=== PATIENT | female | born 1985 | race Caucasian/White ===

== ENCOUNTER → 2022-09-27 09:54 | Outpatient (BNVA) | payer OTHER, SELFPAY | PROVIDERS: Family Provider Family Medicine; PCP Nurse Practitioner Family; Visit Provider Nurse Practitioner Family | DX: F41.9 Anxiety disorder, unspecified (principal); F32.A Depression, unspecified; Z13.6 Encounter for screening for cardiovascular disorders; E66.9 Obesity, unspecified | CPT/HCPCS: 80053; 80061; 82306; 82607; 83036; 84443; 85025 ==

== ENCOUNTER → 2022-12-27 11:52 | Outpatient (BNVA) | payer OTHER, SELFPAY | PROVIDERS: Family Provider Family Medicine; PCP Nurse Practitioner Family; Visit Provider Nurse Practitioner Family | DX: E55.9 Vitamin D deficiency, unspecified (principal) | CPT/HCPCS: 82306 ==

== ENCOUNTER → 2023-11-06 09:58 | Outpatient (BNVA) | payer BC, SELFPAY | PROVIDERS: Family Provider Family Medicine; PCP Nurse Practitioner Family; Visit Provider Registered Nurse Neonatal Intensive Care | DX: R50.9 Fever, unspecified (principal); J02.9 Acute pharyngitis, unspecified | CPT/HCPCS: 87400; 87880 ==

== ENCOUNTER → 2023-11-27 08:54 | Outpatient (BNVA) | payer BC, SELFPAY | PROVIDERS: Family Provider Family Medicine; PCP Nurse Practitioner Family; Visit Provider Nurse Practitioner | DX: F41.9 Anxiety disorder, unspecified (principal); I10 Essential (primary) hypertension; F32.A Depression, unspecified; E55.9 Vitamin D deficiency, unspecified | CPT/HCPCS: 80053; 80061; 82306; 84443 ==

== ENCOUNTER 2023-12-12 09:10 | Emergency (ER) | payer BC, SELFPAY ==
[2023-12-12 09:20] VITALS: BP 151/93; PULSE 116; RESP 18; TEMP 36.7; O2SAT 100; BMI 48.2
[2023-12-12 10:20] LABS: Basophils % 0.3 %; Eosinophils # 0.1 10^3/uL (0.0-0.8); Eosinophils % 2.1 %; Hematocrit 41.8 % (36-47); Lymphocytes # 1.4 10^3/uL (0.8-4.8); Lymphocytes % 21.3 %; Mean Corpuscular HGB Conc 31.8 g/dL (30-55); Mean Corpuscular Hemoglobin 25.3 pg (27-33); Mean Corpuscular Volume 79.6 fl (85-98); Mean Platelet Volume 9.3 fL (7.4-10.4); Monocytes # 0.5 10^3/uL (0.2-0.9); Monocytes % 6.7 %; Neutrophils # 4.63 10^3/uL (1.8-7.7); Neutrophils % 69.3 %; Nucleated Red Blood Cells % 0 %; Platelet Count 395 10^3/cmm (157-399); Red Blood Count 5.25 10^6/uL (3.85-5.65); Red Cell Distribution Width 13.9 % (12.1-15.1); White Blood Count 6.68 10^3/uL (3.29-11.43)
[2023-12-12 10:22] VITALS: BP 109/91; PULSE 88; O2SAT 100
[2023-12-12 10:36] LABS: Urine Appearance Cloudy (CLEAR); Urine Color Dark Yellow (Yellow)
[2023-12-12 10:39] LABS: Add Urine Microscopic? YES; Bilirubin Urine 1+ (Negative); Blood Urine 2+ (Negative); Glucose Urine UA Norm (Normal); Ketones Urine 2+ (Negative); Leukocyte Esterase Urine 2+ (Negative); Nitrate Urine Negative (Negative); Protein Urine Trace (Negative); Specific Gravity, Urine 1.025 (1.005-1.030); Urobilinogen Urine Norm (Negative); pH Urine 5 (5-7)
[2023-12-12 10:42] LABS: Add Urine Culture? Yes; Bacteria Urine 1+ /hpf; Hyaline Casts Urine 0-4 /lpf; Mucus Urine 1+ /hpf; RBC Urine 0-4 /hpf (0-2); WBC Urine 15-25 /hpf (0-5)
[2023-12-12 10:42] LABS: Alanine Aminotransferase 12 U/L (0-33); Alkaline Phosphatase 107 U/L (35-105); Aspartate Amino Transferase 18 U/L (0-32); Blood Urea Nitrogen 9 mg/dL (6-20); Calcium 8.3 mg/dL (8.5-10.5); Carbon Dioxide 25 mmol/L (22-29); Chloride 101 mmol/L (98-107); Creatinine Clr Calc Pharmacy 172.5283; Globulin 3.5 g/dL (1.3-4.6); Glomerular Filtration Rate 111.3 mL/min (90-130); Glucose 100 mg/dL (65-115); Osmolality Calculated 285 mOsm/kg (285-295); Sodium 138 mmol/L (136-145); Total Bilirubin 0.4 mg/dL (0.15-1.2); Total Protein 7.5 g/dL (6.6-8.7)
[2023-12-12 10:54] LABS: Anion Gap 15.8 (5-19); Potassium 3.8 mmol/L (3.5-5.1)
--- NOTE | 2023-12-12 10:54 | W.ED.NAVMDI ---
HPI - Nausea/Vomiting/Diarrhea General: Chief complaint: Nausea/Vomiting/Diarrhea Stated complaint: N/V, chills Time Seen by Provider: 12/12/23 10:50 History of Present Illness: 38-year-old female presents emergency department with complaints of feeling generally rundown with excessive periods with nausea and vomiting for the previous 2 days. She states she recently took the Victoza shot for weight loss and then started having several episodes of nausea and vomiting since that time. She states that she does feel very tired and run down since that time. She denies fevers or night sweats. She denies epigastric or abdominal pain. She states she is having normal bowel movements. She states that she feels like she is unable to keep anything down. She states anytime she attempts to eat or drink anything she feels like she is going to vomit. Associated nausea: Yes Associated symtoms: Reports nausea Review of Systems General: Reports: 10 or more systems reviewed and unremarkable except in HPI and below GI: Reports: nausea and vomiting : Reports: urinary frequency PFSH ED PFSH: Medical History Anxiety and depression Obesity Surgical History Hx of section 3 Hx of appendectomy H/O tubal ligation Family History Family/Other Diabetes Heart disease Cancer colon, breast Hypertension Psychiatric illness bipolar disorder, depression Social History Smoking and tobacco/nicotine status: former use of tobacco/nicotine Quit status (tobacco/nicotine): has quit using Year quit tobacco: 2014 Former quit date comment: smoked on and off for 12 years prior to quitting in 2014 Second hand smoke exposure: No Alcohol intake: current Alcohol intake frequency: holidays/special occasions only Alcohol type: other Substance/Drug Use: never Adopted: No Household members: spouse and children Marital status: Number of children: 3 service: No Current occupational status: employed Current occupation: [employer] Pets and animals: Yes Pets & animals: dog(s) Current gender identity: Female Mary/Anabaptist: Taoist Special mary needs: No Physical Exam Narrative: EXAM NARRATIVE: Constitutional: the patient appears well nourished and of normal development. Vital signs as documented. No acute distress at present. Alert and oriented-to person, place, time and situation. Head, eyes, ears, nose, mouth, throat: Normocephalic, atraumatic. Pupils-equal, round, reactive to light. No scleral icterus. Normal-appearing external ears. Normal appearing nasal turbinates, no drainage. No obvious oral lesions, posterior oropharynx without erythema or exudates. Neck: Supple, trachea is midline, no lymphadenopathy, no jugular venous distension, thyromegaly, or carotid bruits. Carotid upstrokes are brisk bilaterally. Lungs: clear to auscultation to all lung grey. Symmetrical rise and fall of chest, no obvious signs of increased work of breathing at present. Cardiac: Regular rate and rhythm, positive S1, S2. No murmurs, rubs or gallops that I can appreciate Abdomen: Soft, non-tender to palpation, normal active bowel sounds to all quadrants. No palpable masses, no organomegaly and abdominal bruits. Extremities: 2+ pulses in the upper extremities that are equal bilaterally, 2+ pulses in the lower extremities that are equal bilaterally. Non-edematous. Moves all extremities well, sensation to all extremities are noted. Skin: Warm, dry, intact. Course Vital Signs: Vital signs: Vital Signs Temperature 98.0 F 12/12/23 09:20 Pulse Rate 82 12/12/23 11:22 Respiratory Rate 18 12/12/23 09:20 Blood Pressure 147/85 12/12/23 11:22 Pulse Oximetry 100 12/12/23 11:22 Oxygen Delivery Me thod Room Air 12/12/23 11:22 MDM - Nausea/Vomiting/Diarrhea Medical Decision Making Physical exam completed and documented I did obtain a CBC and CMP which appear to be unremarkable. I suspect most likely her nausea vomiting is related to her big toe so I did advise her to contact her primary care physician and will provide her Zofran for antiemetic. Advised her to take no additional shots of the Victoza and discuss her weight loss treatment plan with her primary care weight loss physician Medical Records I reviewed the patient's medical records. Lab Data I reviewed the patient's lab results. 12/12/23 10:14 12/12/23 10:14 Laboratory Results WBC 6.68 10^3/uL (3.29-11.43) 12/12/23 10:14 RBC 5.25 10^6/uL (3.85-5.65) 12/12/23 10:14 Hgb 13.30 g/dL (11.27-16.99) 12/12/23 10:14 Hct 41.8 % (36-47) 12/12/23 10:14 MCV 79.6 fl (85-98) L 12/12/23 10:14 MCH 25.3 pg (27-33) L 12/12/23 10:14 MCHC 31.8 g/dL (30-55) 12/12/23 10:14 RDW 13.9 % (12.1-15.1) 12/12/23 10:14 Plt Count 395 10^3/cmm (157-399) 12/12/23 10:14 MPV 9.3 fL (7.4-10.4) 12/12/23 10:14 Neut % (Auto) 69.3 % 12/12/23 10:14 Lymph % (Auto) 21.3 % 12/12/23 10:14 [place] % (Auto) 6.7 % 12/12/23 10:14 Eos % (Auto) 2.1 % 12/12/23 10:14 Baso % (Auto) 0.3 % 12/12/23 10:14 Neut # (Auto) 4.63 10^3/uL (1.8-7.7) 12/12/23 10:14 Lymph # (Auto) 1.4 10^3/uL (0.8-4.8) 12/12/23 10:14 [place] # (Auto) 0.5 10^3/uL (0.2-0.9) 12/12/23 10:14 Eos # (Auto) 0.1 10^3/uL (0.0-0.8) 12/12/23 10:14 Baso # (Auto) 0.0 10^3/uL (0.0-0.1) 12/12/23 10:14 Nucleated RBC % (auto) 0 % 12/12/23 10:14 Nucleated RBCs # 0.0 /100WBC 12/12/23 10:14 Sodium 138 mmol/L (136-145) 12/12/23 10:14 Potassium 3.8 mmol/L (3.5-5.1) 12/12/23 10:14 Chloride 101 mmol/L (98-107) 12/12/23 10:14 Carbon Dioxide 25 mmol/L (22-29) 12/12/23 10:14 Anion Gap 15.8 (5-19) 12/12/23 10:14 BUN 9 mg/dL (6-20) 12/12/23 10:14 Creatinine 0.6 mg/dL (0.5-0.9) 12/12/23 10:14 GFR Calculation 111.3 mL/min (90-130) 12/12/23 10:14 Glucose 100 mg/dL (65-115) 12/12/23 10:14 Calculated Osmolality 285 mOsm/kg (285-295) 12/12/23 10:14 Calcium 8.3 mg/dL (8.5-10.5) L 12/12/23 10:14 Total Bilirubin 0.4 mg/dL (0.15-1.2) 12/12/23 10:14 AST 18 U/L (0-32) 12/12/23 10:14 ALT 12 U/L (0-33) 12/12/23 10:14 Alkaline Phosphatase 107 U/L (35-105) H 12/12/23 10:14 Total Protein 7.5 g/dL (6.6-8.7) 12/12/23 10:14 Albumin 4.0 g/dL (3.5-5.2) 12/12/23 10:14 Globulin 3.5 g/dL (1.3-4.6) 12/12/23 10:14 Urine Color Dark yellow (Yellow) 12/12/23 10:20 Urine Appearance Cloudy (CLEAR) A 12/12/23 10:20 Urine pH 5 (5-7) 12/12/23 10:20 Ur Specific [place] 1.025 (1.005-1.030) 12/12/23 10:20 Urine Protein Trace (Negative) 12/12/23 10:20 Urine Glucose (UA) Norm (Normal) 12/12/23 10:20 Urine Ketones 2+ (Negative) H 12/12/23 10:20 Urine Blood 2+ (Negative) H 12/12/23 10:20 Urine Nitrate Negative (Negative) 12/12/23 10:20 Urine Bilirubin 1+ (Negative) H 12/12/23 10:20 Urine Urobilinogen Norm mg/dL (Negative) 12/12/23 10:20 Ur Leukocyte Esterase 2+ (Negative) H 12/12/23 10:20 Urine RBC 0-4 /hpf (0-2) H 12/12/23 10:20 Urine WBC 15-25 /hpf (0-5) H 12/12/23 10:20 Ur Squamous Epith Cells 5-10 /hpf (0-5) H 12/12/23 10:20 Calcium Oxalate Crystal 5-10 /hpf H 12/12/23 10:20 Amorphous Sediment Not Reportable 12/12/23 10:20 Urine Bacteria 1+ /hpf (NONE) H 12/12/23 10:20 Hyaline Casts 0-4 /lpf H 12/12/23 10:20 Urine Mucus 1+ /hpf 12/12/23 10:20 No radiology studies performed this visit Discharge Plan Discharge Patient Disposition: Home Clinical Impression: Urinary tract infection Qualifiers: Urinary tract infection type: acute cystitis Hematuria presence: with hematuria Qualified Code(s): N30.01 - Acute cystitis with hematuria Condition: Stable Prescriptions: New ondansetron HCl 4 mg tablet 4 mg PO Q6H PRN (Reason: nausea and vomiting) Qty: 14 0RF Macrobid 100 mg capsule 100 mg PO Q12H 7 Days Qty: 14 0RF Rx Instructions: must administer with a meal/food No Action hydroxyzine pamoate 25 mg capsule 25 mg PO BID PRN (Reason: anxiety) Qty: 10 0RF magnesium oxide 400 mg magnesium capsule 400 mg PO DAILY zinc sulfate 50 mg zinc (220 mg) capsule 50 mg PO DAILY mecobalamin (vitamin B12) 1,000 mcg tablet,disintegrating 1,000 mcg sublingual DAILY Rx Instructions: place tablet under tongue and allow to dissolve for at least30 secs before swallowing cholecalciferol (vitamin D3) 25 mcg (1,000 unit) capsule 25 mcg PO DAILY propranolol 20 mg tablet 20 mg PO BID Qty: 60 2RF buspirone 30 mg tablet 30 mg PO BID 30 Days Qty: 60 2RF duloxetine 60 mg capsule,delayed release(DR/EC) 60 mg PO DAILY Qty: 30 2RF Rx Instructions: take 1 capsule daily with 30 mg to = 90 mg daily duloxetine 30 mg capsule,delayed release(DR/EC) 30 mg PO DAILY Qty: 30 2RF Rx Instructions: take 1 capsule with 60 mg to = 90 mg daily naltrexone 50 mg tablet 50 mg PO DAILY Qty: 30 2RF Victoza 3-Gary 0.6 mg/0.1 mL (18 mg/3 mL) pen injector See Rx Instructions SUBCUT .COMPLEX Qty: 9 0RF Rx Instructions: inject 0.6mg subcutaneously once daily x 7 days; then 1.2mg daily for week, not to exceed 1.8mg/day SUBCUT (DME) pen needle, diabetic 33 gauge x 5/32 needle See Rx Instructions .ROUTE .MEDSUPPLY Qty: 100 5RF Rx Instructions: 1 time day fluticasone propionate [Flonase Allergy Relief] 50 mcg/actuation spray,suspension 1 spray intranasal Q12H Qty: 16 2RF Rx Instructions: administer into each nostril Discharge Orders: Discharge ED (Routine); Ordered 12/12/23 Ordered By: Luis Arias Referrals: Adeola Jacobo, [employer]-C [Primary Care Provider] - Discharge Diet: Advance as tolerated Discharge Activity: Resume usual activity Patient Instructions: Opioid Safety, Pain Management Activity Restrictions/Additional Instructions: Activity Restrictions/Additional Instructions: Thank you for choosing [facility] for your healthcare needs today. Please realize that you were seen in the Emergency Department and that we are providing you with an emergency medical screening exam and this may not be a complete and all inclusive of all the testing and or medical work-up that you may need to determine your ailment or severity of your illness. It is very important that you follow-up as instructed with your Primary care provider or Specialist for additional evaluation and to discuss your medical treatment plan. Coding Level of Care Code ED Hotel Or Motel Manager for Zehra Conner
[2023-12-12] MEDS: cefTRIAXone 1,000 MG in sodium chloride 0.9% (plus) 50 ML 100 MG IV (11:20)
[2023-12-12 11:22] VITALS: BP 147/85; PULSE 82; O2SAT 100
[2023-12-12 11:59] VITALS: BP 130/90; PULSE 75; O2SAT 100
== END 2023-12-12 12:00 | disposition home or self-care (01) ==
PROVIDERS: Family Medicine; Emergency Provider Internal Medicine; PCP Nurse Practitioner
DX: N30.01 Acute cystitis with hematuria (principal); Z87.891 Personal history of nicotine dependence
CPT/HCPCS: 80053; 81001; 85025; 87086; 87186; 96365; 99284; J0696

== ENCOUNTER 2023-12-27 22:07 | Emergency (ER) | payer BC, SELFPAY ==
[2023-12-27 22:18] VITALS: BP 152/101; PULSE 66; RESP 16; TEMP 36.5; O2SAT 100; BMI 46.5
--- NOTE | 2023-12-27 23:20 | CTR_ITS ---
PROCEDURE INFORMATION: Exam: CT Abdomen And Pelvis Without Contrast Exam date and time: 12/28/2023 12:22 AM Age: 38 years old Clinical indication: Nausea and vomiting; Abdominal pain; Flank; Left; Prior surgery; Surgery date: 6+ months; Surgery type: Tubal, appy; Additional info: Flank pain, HX of kidney stones TECHNIQUE: Imaging protocol: Computed tomography of the abdomen and pelvis without contrast. Radiation optimization: All CT scans at this facility use at least one of these dose optimization techniques: automated exposure control; mA and/or kV adjustment per patient size (includes targeted exams where dose is matched to clinical indication); or iterative reconstruction. COMPARISON: No relevant prior studies available. RADIATION DOSE METRICS: Total DLP (mGy-cm): 1183 FINDINGS: Lungs: Lung bases are clear. Heart: No cardiomegaly. No pericardial effusion. Diaphragm: Small sliding hiatal hernia. Liver: Normal liver. Gallbladder and bile ducts: Normal gallbladder. No calcified stones. No ductal dilation. Pancreas: Normal pancreas. No ductal dilation. Spleen: Normal spleen. No splenomegaly. Adrenal glands: Normal adrenal glands. Kidneys and ureters: A 5 mm calculus in the proximal left ureter, with mild left hydronephrosis and trace periureteral stranding. Kidneys are otherwise unremarkable. No other calculi are identified. Stomach and bowel: No bowel wall thickening. No evidence of bowel obstruction. Appendix: Appendix not visualized, consistent with history of prior appendectomy. Intraperitoneal space: No free fluid or free air. Vasculature: No abdominal aortic aneurysm. Lymph nodes: No adenopathy. Urinary bladder: Urinary bladder is decompressed, limiting evaluation. No obvious bladder abnormality. Reproductive: Uterus and adnexal structures are grossly unremarkable. Bones/joints: No acute osseous abnormality or evidence of osseous metastatic disease. Severe disc space narrowing at L5-S1. Soft tissues: Mild diastasis rectus with small fat containing umbilical hernia. CT/CT kidney stone [id number] IMPRESSION: 1. A 5 mm calculus in the proximal left ureter, with mild left hydronephrosis and trace periureteral stranding. 2. Small sliding hiatal hernia. 3. Appendix not visualized, consistent with history of prior appendectomy. 4. Mild diastasis rectus with small fat containing umbilical hernia.
--- NOTE | 2023-12-28 00:30 | ED_ITS ---
HPI - Back Pain/Injury 2 General: Chief Complaint: Back Pain/Injury Stated Complaint: Martha Stone Time Seen by Provider: 12/28/23 00:29 History of Present Illness: Patient presents with left-sided back pain. She was here not too long ago for urinary tract infection. Pancreas think she is passing kidney stone. Patient is had stones in the past. Patient is having lots of nausea and vomiting. Review of Systems 2 General: Reports: 10 or more systems reviewed and unremarkable except in HPI and below PFSH ED 2 PFSH: Medical History Anxiety and depression Obesity Surgical History Hx of section 3 Hx of appendectomy H/O tubal ligation Family History Family/Other Diabetes Heart disease Cancer colon, breast Hypertension Psychiatric illness bipolar disorder, depression Social History Smoking and tobacco/nicotine status: former use of tobacco/nicotine Quit status (tobacco/nicotine): has quit using Year quit tobacco: 2014 Former quit date comment: smoked on and off for 12 years prior to quitting in 2014 Second hand smoke exposure: No Alcohol intake: current Alcohol intake frequency: holidays/special occasions only Alcohol type: other Substance/Drug Use: never Adopted: No Household members: spouse and children Marital status: Number of children: 3 service: No Current occupational status: employed Current occupation: [employer] Pets and animals: Yes Pets & animals: dog(s) Current gender identity: Female Mary/Synagogue: Mosque Special mary needs: No Physical Exam 2 Const: COMMON NORMALS: no acute distress, average body habitus, patient oriented x3, no limitations, healthy appearing, alert and well nourished HENMT: COMMON NORMALS: normocephalic, atraumatic, hearing grossly normal bilaterally, external ears normal, Normal external nose present, moist oral mucous membranes and oropharynx normal HEAD & SCALP: normocephalic and atraumatic NOSE: Normal external nose present EXTERNAL EAR: Yes external ears normal Neck/C-Spine: COMMON NORMALS: no JVD Chest: COMMONS NORMALS: normal inspection of the chest and normal palpation of entire chest wall Resp: COMMON NORMALS: normal respiratory effort, No retractions, No use of accessory muscles and clear to auscultation bilaterally AUSCULTATION: clear to auscultation bilaterally Cardio: COMMON NORMALS: no JVD, regular rate, regular rhythm, S1 normal heart sound present, S2 normal heart sound present, No gallops present (Cardio), No clicks present (Cardio), No murmurs present (Cardio) and No rub (Cardio) R ATE: regular rate RHYTHM: regular rhythm HEART SOUNDS: S1 normal heart sound present and S2 normal heart sound present GI: COMMON NORMALS: Normal to inspection, nondistended, normoactive bowel sounds present, Soft to palpation, non-tender, No hepatosplenomegaly present and no masses PALPATION: Yes Soft to palpation and Yes No hepatosplenomegaly present Neuro: COMMON NORMALS: patient oriented x3 SENSORIUM/ORIENTATION: Yes alert Course 2 Vital Signs: Vital signs: Vital Signs Temperature 97.7 F 12/27/23 22:18 Pulse Rate 66 12/27/23 22:18 Respiratory Rate 20 H 12/28/23 01:00 Blood Pressure 152/101 12/27/23 22:18 Pulse Oximetry 100 12/27/23 22:18 Oxygen Delivery Me thod Room Air 12/27/23 22:18 MDM - Back Pain/Injury Medical Decision Making Labs were obtained which showed a white count of 17,000, a urinary tract infection still present. Abdomen CT of the pelvis showed 5 mm stone in the proximal left ureter with mild hydro-, patient was given Toradol, Zofran, 1 L normal saline bolus, morphine 4 mg, Norflex 60 mg, patient will be discharged on Levaquin, Toradol tablets, and Flomax. Patient will have an appointment with the urologist made by case management. Differential Diagnosis Unlikely lumbar radiculopathy, sciatica, strain of lumbar region, renal colic, pyelonephritis, thoracic back pain, AAA or discitis Medical Records I reviewed the patient's medical records. Labs I reviewed the patient's lab results. 12/28/23 00:41 12/28/23 00:41 Radiology Impressions Abdomen/Pelvis CT 12/27/23 23:20 IMPRESSION: 1. A 5 mm calculus in the proximal left ureter, with mild left hydronephrosis and trace periureteral stranding. 2. Small sliding hiatal hernia. 3. Appendix not visualized, consistent with history of prior appendectomy. 4. Mild diastasis rectus with small fat containing umbilical hernia. Laboratory Results WBC 17.57 10^3/uL (3.29-11.43) H 12/28/23 00:41 RBC 4.69 10^6/uL (3.85-5.65) 12/28/23 00:41 Hgb 11.90 g/dL (11.27-16.99) 12/28/23 00:41 Hct 37.1 % (36-47) 12/28/23 00:41 MCV 79.1 fl (85-98) L 12/28/23 00:41 MCH 25.4 pg (27-33) L 12/28/23 00:41 MCHC 32.1 g/dL (30-55) 12/28/23 00:41 RDW 13.8 % (12.1-15.1) 12/28/23 00:41 Plt Count 400 10^3/cmm (157-399) H 12/28/23 00:41 MPV 9.1 fL (7.4-10.4) 12/28/23 00:41 Neut % (Auto) 82.0 % 12/28/23 00:41 Lymph % (Auto) 11.7 % 12/28/23 00:41 [place] % (Auto) 4.8 % 12/28/23 00:41 Eos % (Auto) 0.7 % 12/28/23 00:41 Baso % (Auto) 0.3 % 12/28/23 00:41 Neut # (Auto) 14.38 10^3/uL (1.8-7.7) H 12/28/23 00:41 Lymph # (Auto) 2.1 10^3/uL (0.8-4.8) 12/28/23 00:41 [place] # (Auto) 0.9 10^3/uL (0.2-0.9) 12/28/23 00:41 Eos # (Auto) 0.1 10^3/uL (0.0-0.8) 12/28/23 00:41 Baso # (Auto) 0.1 10^3/uL (0.0-0.1) 12/28/23 00:41 Nucleated RBC % (auto) 0 % 12/28/23 00: Nucleated RBCs # 0.0 /100WBC 12/28/23 00:41 Sodium 138 mmol/L (136-145) 12/28/23 00:41 Potassium 4.3 mmol/L (3.5-5.1) 12/28/23 00:41 Chloride 99 mmol/L (98-107) 12/28/23 00:41 Carbon Dioxide 28 mmol/L (22-29) 12/28/23 00:41 Anion Gap 15.3 (5-19) 12/28/23 00:41 BUN 13 mg/dL (6-20) 12/28/23 00:41 Creatinine 0.8 mg/dL (0.5-0.9) 12/28/23 00: GFR Calculation 79.9 mL/min (90-130) L 12/28/23 00:41 Glucose 152 mg/dL (65-115) H 12/28/23 00:41 Calculated Osmolality 289 mOsm/kg (285-295) 12/28/23 00:41 Calcium 8.9 mg/dL (8.5-10.5) 12/28/23 00:41 Total Bilirubin 0.6 mg/dL (0.15-1.2) 12/28/23 00:41 AST 21 U/L (0-32) 12/28/23 00:41 ALT 8 U/L (0-33) 12/28/23 00:41 Alkaline Phosphatase 88 U/L (35-105) 12/28/23 00:41 Total Protein 7.7 g/dL (6.6-8.7) 12/28/23 00:41 Albumin 4.2 g/dL (3.5-5.2) 12/28/23 00:41 Globulin 3.5 g/dL (1.3-4.6) 12/28/23 00:41 Urine Color Yellow (Yellow) 12/28/23 00:17 Urine Appearance Hazy (CLEAR) A 12/28/23 00:17 Urine pH 6 (5-7) 12/28/23 00:17 Ur Specific [place] 1.020 (1.005-1.030) 12/28/23 00:17 Urine Protein 1+ (Negative) H 12/28/23 00:17 Urine Glucose (UA) Norm (Normal) 12/28/23 00:17 Urine Ketones 1+ (Negative) H 12/28/23 00:17 Urine Blood 3+ (Negative) H 12/28/23 00:17 Urine Nitrate Negative (Negative) 12/28/23 00:17 Urine Bilirubin Neg (Negative) 12/28/23 00:17 Urine Urobilinogen Neg mg/dL (Negative) 12/28/23 00:17 Ur Leukocyte Esterase 1+ (Negative) H 12/28/23 00:17 Urine RBC 25-40 /hpf (0-2) H 12/28/23 00:17 Urine WBC 15-25 /hpf (0-5) H 12/28/23 00:17 Ur Squamous Epith Cells 5-10 /hpf (0-5) H 12/28/23 00:17 Amorphous Sediment Not Reportable 12/28/23 00:17 Urine Bacteria 3+ /hpf (NONE) H 12/28/23 00:17 Urine Mucus 3+ /hpf 12/28/23 00:17 All radiology interpretation(s) finalized by discharge Discharge Plan Discharge Patient Disposition: Home Clinical Impression: Kidney stone Urinary tract infection Qualifiers: Urinary tract infection type: acute cystitis Hematuria presence: with hematuria Qualified Code(s): N30.01 - Acute cystitis with hematuria Condition: Stable Prescriptions: New levofloxacin 500 mg tablet 500 mg PO DAILY 10 Days Qty: 10 0RF ketorolac 10 mg tablet 10 mg PO Q6H PRN (Reason: pain) Qty: 14 0RF Rx Instructions: maximum total duration of 5 days from all oral, intranasal, or parenteral formulations Flomax 0.4 mg capsule 0.4 mg PO DAILY Qty: 10 0RF ondansetron 4 mg tablet,disintegrating 4 mg PO TID PRN (Reason: nausea and vomiting) Qty: 14 0RF No Action hydroxyzine pamoate 25 mg capsule 25 mg PO BID PRN (Reason: anxiety) Qty: 10 0RF magnesium oxide 400 mg magnesium capsule 400 mg PO DAILY zinc sulfate 50 mg zinc (220 mg) capsule 50 mg PO DAILY mecobalamin (vitamin B12) 1,000 mcg tablet,disintegrating 1,000 mcg sublingual DAILY Rx Instructions: place tablet under tongue and allow to dissolve for at least30 secs before swallowing cholecalciferol (vitamin D3) 25 mcg (1,000 unit) capsule 25 mcg PO DAILY propranolol 20 mg tablet 20 mg PO BID Qty: 60 2RF buspirone 30 mg tablet 30 mg PO BID 30 Days Qty: 60 2RF duloxetine 60 mg capsule,delayed release(DR/EC) 60 mg PO DAILY Qty: 30 2RF Rx Instructions: take 1 capsule daily with 30 mg to = 90 mg daily duloxetine 30 mg capsule,delayed release(DR/EC) 30 mg PO DAILY Qty: 30 2RF Rx Instructions: take 1 capsule with 60 mg to = 90 mg daily naltrexone 50 mg tablet 50 mg PO DAILY Qty: 30 2RF Victoza 3-Gary 0.6 mg/0.1 mL (18 mg/3 mL) pen injector See Rx Instructions SUBCUT .COMPLEX Qty: 9 0RF Rx Instructions: inject 0.6mg subcutaneously once daily x 7 days; then 1.2mg daily for week, not to exceed 1.8mg/day SUBCUT (DME) pen needle, diabetic 33 gauge x 5/32 needle See Rx Instructions .ROUTE .MEDSUPPLY Qty: 100 5RF Rx Instructions: 1 time day fluticasone propionate [Flonase Allergy Relief] 50 mcg/actuation spray,suspension 1 spray intranasal Q12H Qty: 16 2RF Rx Instructions: administer into each nostril ondansetron HCl 4 mg tablet 4 mg PO Q6H PRN (Reason: nausea and vomiting) Qty: 14 0RF Discharge Orders: Discharge ED (Routine); Ordered 12/28/23 Ordered By: Michel Ruiz Referrals: Adeola Jacobo FNP-C [Primary Care Provider] - 1 week Patient Instructions: Opioid Safety, Pain Management Activity Restrictions/Additional Instructions: Your CT scan showed you have a left ureteral stone that is 5 mm in diameter. Your urinalysis showed you still have a urinary tract infection. You will be placed on pain medicine, nausea medicine, and an antibiotic. He will be referred to urology case management will be given you call to arrange this appointment. Please take all medicine as directed. If your pain becomes unbearable or you start developing fevers chills etc. please return to the ER. Coding Level of Care Code ED Extra Gang Supervisor for Zehra Conner
[2023-12-28 00:44] LABS: Basophils # 0.1 10^3/uL (0.0-0.1); Basophils % 0.3 %; Eosinophils # 0.1 10^3/uL (0.0-0.8); Eosinophils % 0.7 %; Hematocrit 37.1 % (36-47); Lymphocytes # 2.1 10^3/uL (0.8-4.8); Lymphocytes % 11.7 %; Mean Corpuscular HGB Conc 32.1 g/dL (30-55); Mean Corpuscular Hemoglobin 25.4 pg (27-33); Mean Corpuscular Volume 79.1 fl (85-98); Mean Platelet Volume 9.1 fL (7.4-10.4); Monocytes # 0.9 10^3/uL (0.2-0.9); Monocytes % 4.8 %; Neutrophils # 14.38 10^3/uL (1.8-7.7); Nucleated Red Blood Cells % 0 %; Platelet Count 400 10^3/cmm (157-399); Red Blood Count 4.69 10^6/uL (3.85-5.65); Red Cell Distribution Width 13.8 % (12.1-15.1); White Blood Count 17.57 10^3/uL (3.29-11.43)
[2023-12-28] MEDS: ketorolac 30 mg/mL INJ IVP (00:51)
[2023-12-28] MEDS: ondansetron 2 mg/ML SDV 2 mL 8 MG IVP (00:51)
[2023-12-28] MEDS: sodium chloride 0.9% 1,000 ML 999 ML IV (00:51)
[2023-12-28 00:54] VITALS: BP 154/95; PULSE 64; RESP 18; O2SAT 97
[2023-12-28 01:00] VITALS: RESP 20
[2023-12-28] MEDS: morphine 4 mg/mL SDV 1 mL IVP ×2 (01:00→03:33)
[2023-12-28 01:01] LABS: Alanine Aminotransferase 8 U/L (0-33); Albumin Level 4.2 g/dL (3.5-5.2); Alkaline Phosphatase 88 U/L (35-105); Anion Gap 15.3 (5-19); Aspartate Amino Transferase 21 U/L (0-32); Blood Urea Nitrogen 13 mg/dL (6-20); Calcium 8.9 mg/dL (8.5-10.5); Carbon Dioxide 28 mmol/L (22-29); Chloride 99 mmol/L (98-107); Creatinine Clr Calc Pharmacy 126.6919; Globulin 3.5 g/dL (1.3-4.6); Glomerular Filtration Rate 79.9 mL/min (90-130); Glucose 152 mg/dL (65-115); Osmolality Calculated 289 mOsm/kg (285-295); Potassium 4.3 mmol/L (3.5-5.1); Sodium 138 mmol/L (136-145); Total Bilirubin 0.6 mg/dL (0.15-1.2); Total Protein 7.7 g/dL (6.6-8.7)
[2023-12-28] MEDS: orphenadrine 30 mg/mL Inj 2 mL 60 MG IVP (01:03)
[2023-12-28 02:00] LABS: Add Urine Microscopic? YES; Bilirubin Urine Neg (Negative); Blood Urine 3+ (Negative); Glucose Urine UA Norm (Normal); Ketones Urine 1+ (Negative); Leukocyte Esterase Urine 1+ (Negative); Nitrate Urine Negative (Negative); Protein Urine 1+ (Negative); Urine Appearance Hazy (CLEAR); Urine Color Yellow (Yellow); Urobilinogen Urine Neg (Negative); pH Urine 6 (5-7)
[2023-12-28 02:01] LABS: Add Urine Culture? Yes; Bacteria Urine 3+ /hpf; Mucus Urine 3+ /hpf; RBC Urine 25-40 /hpf (0-2); WBC Urine 15-25 /hpf (0-5)
[2023-12-28] MEDS: cefTRIAXone 1,000 MG in sodium chloride 0.9% (plus) 50 ML 100 MG IV (02:15)
[2023-12-28 02:24] VITALS: BP 143/74; PULSE 70; O2SAT 100
[2023-12-28 03:00] VITALS: BP 137/79; PULSE 76; O2SAT 97
[2023-12-28 03:33] VITALS: RESP 14
[2023-12-28 04:17] VITALS: BP 133/83; PULSE 77; O2SAT 98
--- NOTE | 2024-01-07 09:49 | DCPLANNER ---
faxed urology ref for er f/u to [place]
== END 2023-12-28 04:20 | disposition home or self-care (01) ==
PROVIDERS: Emergency Provider Emergency Medicine; PCP Nurse Practitioner
DX: N30.01 Acute cystitis with hematuria (principal); N20.0 Calculus of kidney; Z87.891 Personal history of nicotine dependence
CPT/HCPCS: 74176; 80053; 81001; 85025; 87077; 87086; 87186; 96365; 96375; 96376; 99285; J0696; J1885; J2270; J2360; J2405; J7030

== ENCOUNTER → 2024-03-27 09:09 | Outpatient (BNVA) | payer BC, SELFPAY | PROVIDERS: PCP Nurse Practitioner; Visit Provider Nurse Practitioner | DX: I10 Essential (primary) hypertension (principal); R73.9 Hyperglycemia, unspecified | CPT/HCPCS: 80053; 80061; 83036; 84550; 85025 ==

== ENCOUNTER → 2024-08-03 12:39 | Outpatient (BNVA) | payer BC, SELFPAY | PROVIDERS: PCP Nurse Practitioner | DX: R05.9 Cough, unspecified (principal) | CPT/HCPCS: 87400; 87426 ==

== ENCOUNTER → 2024-10-23 08:00 | Outpatient (BNVA) | payer BC, SELFPAY | PROVIDERS: PCP Nurse Practitioner; Visit Provider Nurse Practitioner | DX: I10 Essential (primary) hypertension (principal); E55.9 Vitamin D deficiency, unspecified | CPT/HCPCS: 80053; 82306 ==

== ENCOUNTER 2024-11-10 12:46 | Outpatient (CLI) | payer BC, SELFPAY ==
--- NOTE | 2024-11-10 12:40 | MM_ITS ---
WS: [id number] BILATERAL 3D TOMOSYNTHESIS DIGITAL SCREENING MAMMOGRAPHY WITH CAD CLINICAL INFORMATION: Z12.31 - Encounter for screening mammogram for malignant ... HISTORY: Screening mammogram. No current complaints. COMPARISON: Baseline TECHNIQUE: Bilateral CC and MLO views. FINDINGS: The breasts are composed of heterogeneous fibroglandular density tissue, which can limit the detection of small underlying mass lesions. No suspicious mass, asymmetry, calcifications, or architectural distortion. No evidence of malignancy. MM/MM [facility] tomosynthesis [id number] IMPRESSION: DENSITY: The breasts are heterogeneously dense, which may obscure small masses. BI-RADS: 1- Negative FOLLOW UP: 1 Year Follow-up Recommend return to annual screening mammography.
== END 2024-11-10 12:47 | disposition home or self-care (01) ==
PROVIDERS: PCP Nurse Practitioner; Visit Provider Nurse Practitioner
DX: Z12.31 Encounter for screening mammogram for malignant neoplasm of breast (principal); R92.333 Mammographic heterogeneous density, bilateral breasts
CPT/HCPCS: 77063; 77067; 80053; 82306

== ENCOUNTER → 2025-07-17 13:07 | Outpatient (BNVA) | payer BC, SELFPAY | PROVIDERS: PCP Nurse Practitioner; Visit Provider Emergency Medicine | DX: R39.9 Unspecified symptoms and signs involving the genitourinary system (principal) | CPT/HCPCS: 81000 ==